=== PATIENT | female | born 1995 | race Caucasian/White ===

== ENCOUNTER 2017-10-19 10:52 | Emergency (ER) | payer MEDICAID ==
[~2017-10-19] VITALS: Ht 160 cm; Wt 72.6 kg
[~2017-10-19 10:52] MED LIST: IBUP-974 PO; PREN-385 PO
--- NOTE | 2017-10-19 10:57 | NUR ---
PT AMBULATES TO BED 4
--- NOTE | 2017-10-19 10:58 | NUR ---
22/F c/o noted vaginal bright red blood upon wiping today WITH mild suprapubic cramping 8 wks --LMP 08/22/2017 A2. denies injury/trauma. DENIES N/V/D; SKIN IS PINK/WARM/DRY; AAOX4 WITH EVEN AND STEADY GAIT; LUNGS CLEAR BL. PATIENT STATES PAIN OF 5/10 AT THIS TIME. PATIENT POSITIONED FOR COMFORT; HOB ELEVATED; BEDRAILS UP X2; BED DOWN. ER MD MADE AWARE OF PT STATUS.
[2017-10-19 11:00] VITALS: BP 113/68
--- NOTE | 2017-10-19 11:06 | NUR ---
provided urine sample
--- NOTE | 2017-10-19 11:31 | NUR ---
lab at bedside
[2017-10-19 11:43] LABS: BASOPHILS % (AUTO) 0.6 % (0.0-2.0); EOSINOPHILS # (AUTO) 0.2 K/uL (0-0.4); EOSINOPHILS % (AUTO) 2.7 % (0.0-4.0); HEMATOCRIT 38.7 % (36-48); HEMOGLOBIN 13.3 g/dL (12.0-16.0); LYMPHOCYTES # (AUTO) 2.1 K/uL (2.5-16.5); LYMPHOCYTES % (AUTO) 26.9 % (20.5-51.1); MEAN CORPUSCULAR HEMOGLOBIN 30 pg (27-31); MEAN CORPUSCULAR HGB CONC 34 g/dL (33-37); MONOCYTES # (AUTO) 0.4 K/uL (0.8-1.0); MONOCYTES % (AUTO) 5.7 % (1.7-9.3); NEUTROPHILS # (AUTO) 4.9 K/uL (1.8-7.7); NEUTROPHILS % (AUTO) 64.1 % (42.2-75.2); PLATELET COUNT (AUTO) 318 K/uL (140-450); RED BLOOD CELL COUNT(AUTO) 4.45 MIL/uL (4.20-5.40); RED CELL DISTRIBUTION WIDTH 13.5 % (11.6-13.7); WHITE BLOOD COUNT (AUTO) 7.7 K/uL (4.8-10.8)
--- NOTE | 2017-10-19 14:17 | NUR ---
Patient appears to be resting comfortably in bed. Vital Signs within normal limits. Respirations even and unlabored.WILL CONTINUE TO MONITOR.
[2017-10-19 14:40] VITALS: BP 115/60
--- NOTE | 2017-10-19 14:40 | NUR ---
Patient discharged with v/s stable. Written and verbal after care instructions given and explained. Patient alert, oriented and verbalized understanding of instructions. Ambulatory with steady gait. All questions addressed prior to discharge. ID band removed. Patient advised to follow up with PMD. Rx of [employer] MULTI given. Patient educated on indication of medication including possible reaction and side effects. Opportunity to ask questions provided and answered.
== END 2017-10-19 14:40 | disposition home or self-care (01) ==
LOC: MED 10:52
DX: O20.0 Threatened abortion (principal); Z3A.08 8 weeks gestation of pregnancy; Z79.899 Other long term (current) drug therapy
CPT/HCPCS: 36415; 76801; 81002; 81025; 84702; 85025; 86900; 86901; 99285; Q0092

== ENCOUNTER 2017-12-29 11:48 | Emergency (ER) | payer MEDICAID ==
[~2017-12-29] VITALS: Ht 157.5 cm; Wt 71.2 kg
[2017-12-29 12:05] VITALS: BP 116/73
[2017-12-29 12:40] LABS: BASOPHILS # (AUTO) 0.1 K/uL (0.00-0.22); BASOPHILS % (AUTO) 0.8 % (0.0-2.0); EOSINOPHILS # (AUTO) 0.4 K/uL (0-0.4); EOSINOPHILS % (AUTO) 4.7 % (0.0-4.0); HEMATOCRIT 37.6 % (36-48); LYMPHOCYTES # (AUTO) 2.1 K/uL (2.5-16.5); LYMPHOCYTES % (AUTO) 24.7 % (20.5-51.1); MEAN CORPUSCULAR HEMOGLOBIN 31 pg (27-31); MEAN CORPUSCULAR HGB CONC 35 g/dL (33-37); MEAN CORPUSCULAR VOLUME 89.2 fL (80-94); MONOCYTES # (AUTO) 0.6 K/uL (0.8-1.0); MONOCYTES % (AUTO) 6.9 % (1.7-9.3); NEUTROPHILS # (AUTO) 5.3 K/uL (1.8-7.7); NEUTROPHILS % (AUTO) 62.9 % (42.2-75.2); PLATELET COUNT (AUTO) 320 K/uL (140-450); RED BLOOD CELL COUNT(AUTO) 4.21 MIL/uL (4.20-5.40); RED CELL DISTRIBUTION WIDTH 13.3 % (11.6-13.7); WHITE BLOOD COUNT (AUTO) 8.3 K/uL (4.8-10.8)
[2017-12-29 13:15] LABS: ANION GAP 9.1 (8-16); CARBON DIOXIDE 24.2 mmol/L (21-32); POTASSIUM 3.3 mmol/L (3.5-5.1)
[2017-12-29 13:16] LABS: CREATININE 0.5 mg/dL (0.6-1.3)
[2017-12-29 13:29] LABS: APPEARANCE,URINE HAZY (CLEAR); BILIRUBIN,URINE NEGATIVE (NEGATIVE); BLOOD, URINE 0 (NEGATIVE); COLOR,URINE YELLOW (YELLOW); LEUKOCYTE ESTERASE ,URINE NEGATIVE (NEGATIVE); NITRITE, URINE NEGATIVE (NEGATIVE); PH,URINE 6.5 (5.0-9.0); UGLUCOSE 0 (NEGATIVE)
[2017-12-29 13:30] LABS: RBC,URINE NONE SEEN /HPF (0-5); WBC,URINE 0-5 (RARE) /HPF (0-5)
[2017-12-29 13:51] VITALS: BP 120/75
== END 2017-12-29 13:52 | disposition home or self-care (01) ==
LOC: MED 11:48
DX: O26.892 Other specified pregnancy related conditions, second trimester (principal); R10.30 Lower abdominal pain, unspecified; Z3A.18 18 weeks gestation of pregnancy; Z79.899 Other long term (current) drug therapy
CPT/HCPCS: 36415; 76805; 80048; 81001; 81025; 84702; 85025; 86900; 86901; 99285; Q0092

== ENCOUNTER 2018-03-22 12:37 | Observation (INO) | payer MEDICAID ==
[~2018-03-22] VITALS: Ht 160 cm; Wt 74.4 kg
[2018-03-22 13:12] VITALS: BP 103/56
[2018-03-22 14:58] LABS: BASOPHILS % (AUTO) 0.6 % (0.0-2.0); EOSINOPHILS # (AUTO) 0.1 K/uL (0-0.4); EOSINOPHILS % (AUTO) 1.4 % (0.0-4.0); HEMATOCRIT 36.7 % (36-48); HEMOGLOBIN 12.2 g/dL (12.0-16.0); LYMPHOCYTES # (AUTO) 1.8 K/uL (2.5-16.5); LYMPHOCYTES % (AUTO) 24.1 % (20.5-51.1); MEAN CORPUSCULAR HEMOGLOBIN 29 pg (27-31); MEAN CORPUSCULAR HGB CONC 33 g/dL (33-37); MONOCYTES # (AUTO) 0.5 K/uL (0.8-1.0); MONOCYTES % (AUTO) 7.2 % (1.7-9.3); NEUTROPHILS % (AUTO) 66.7 % (42.2-75.2); PLATELET COUNT (AUTO) 330 K/uL (140-450); RED BLOOD CELL COUNT(AUTO) 4.22 MIL/uL (4.20-5.40); RED CELL DISTRIBUTION WIDTH 13.8 % (11.6-13.7); WHITE BLOOD COUNT (AUTO) 7.6 K/uL (4.8-10.8)
[2018-03-22 15:20] LABS: APPEARANCE,URINE CLEAR (CLEAR); BILIRUBIN,URINE NEGATIVE (NEGATIVE); BLOOD, URINE NEGATIVE (NEGATIVE); COLOR,URINE YELLOW (YELLOW); LEUKOCYTE ESTERASE ,URINE NEGATIVE (NEGATIVE); NITRITE, URINE NEGATIVE (NEGATIVE); PH,URINE 8.5 (5.0-9.0); UGLUCOSE NEGATIVE (NEGATIVE)
== END 2018-03-22 19:35 | disposition home or self-care (01) ==
LOC: MLD 12:37
PROVIDERS: ADMIT Obstetrics & Gynecology; ATTEND Obstetrics & Gynecology
DX: Z3A.30 30 weeks gestation of pregnancy (principal); O26.893 Other specified pregnancy related conditions, third trimester; R10.30 Lower abdominal pain, unspecified
CPT/HCPCS: 36415; 76815; 81003; 85025; C1758; G0378; Q0092

== ENCOUNTER 2018-05-13 19:30 | Observation (INO) | payer MEDICAID ==
[~2018-05-13] VITALS: Ht 160 cm; Wt 77.1 kg
[2018-05-13] MEDS ORDERED: NALBUPHINE 10 MG/ML AMP IVP SCH (20:50)
[2018-05-13 20:58] VITALS: BP 106/56
[2018-05-13] MEDS ORDERED: TERBUTALINE 1 MG/ML VIAL SUBQ ONE (21:13)
[2018-05-13] MEDS: TERBUTALINE 1 MG/ML VIAL SUBQ SCH ×2 (21:33→21:49)
[2018-05-13] MEDS: LACTATED RINGERS 1,000 ML IV SCH (21:33)
[2018-05-14] MEDS ORDERED: NALBUPHINE 10 MG/ML AMP ONE (04:01)
[2018-05-14] MEDS: LACTATED RINGERS 1,000 ML IV SCH (06:38)
== END 2018-05-14 13:50 | disposition home or self-care (01) ==
LOC: MLD 19:30
PROVIDERS: ADMIT Obstetrics & Gynecology; ATTEND Obstetrics & Gynecology
DX: O26.893 Other specified pregnancy related conditions, third trimester (principal); R10.9 Unspecified abdominal pain; Z3A.38 38 weeks gestation of pregnancy
CPT/HCPCS: 76815; 96372; 96374; G0378; J2300; J3105; J7120; Q0092

== ENCOUNTER 2018-05-16 11:47 | Inpatient (IN) | payer MEDICAID ==
[~2018-05-16] VITALS: Ht 160 cm; Wt 77.6 kg
[2018-05-16 12:55] VITALS: BP 119/77
[2018-05-16] MEDS ORDERED: TERBUTALINE 1 MG/ML VIAL SUBQ SCH (13:55)
[2018-05-16] MEDS ORDERED: TERBUTALINE 1 MG/ML VIAL SUBQ ONE (14:32)
[2018-05-16] MEDS ORDERED: LACTATED RINGERS 1,000 ML IV SCH (23:19)
[2018-05-16] MEDS ORDERED: NALBUPHINE 10 MG/ML AMP IVP ONE (23:20)
[2018-05-16] MEDS ORDERED: AMPICILLIN 2,000 MG in NACL 0.9% MINI-BAG PLUS 100 ML IV SCH (23:20)
[2018-05-16] MEDS ORDERED: LACTATED RINGERS 500 ML IV ONE (23:20)
[2018-05-16] MEDS ORDERED: OXYTOCIN 10 UNITS/ML VIAL IM SCH (23:20)
[2018-05-16] MEDS ORDERED: PROMETHAZINE 25 MG/ML VIAL IVP PRN (23:20)
[2018-05-16 23:45] LABS: BASOPHILS # (AUTO) 0.1 K/uL (0.00-0.22); BASOPHILS % (AUTO) 0.8 % (0.0-2.0); EOSINOPHILS % (AUTO) 0.5 % (0.0-4.0); HEMATOCRIT 36.4 % (36-48); HEMOGLOBIN 12.1 g/dL (12.0-16.0); LYMPHOCYTES # (AUTO) 2.4 K/uL (2.5-16.5); MEAN CORPUSCULAR HEMOGLOBIN 28 pg (27-31); MEAN CORPUSCULAR HGB CONC 33 g/dL (33-37); MEAN CORPUSCULAR VOLUME 85.2 fL (80-94); MONOCYTES # (AUTO) 0.5 K/uL (0.8-1.0); MONOCYTES % (AUTO) 6.6 % (1.7-9.3); NEUTROPHILS # (AUTO) 4.8 K/uL (1.8-7.7); NEUTROPHILS % (AUTO) 61.1 % (42.2-75.2); PLATELET COUNT (AUTO) 260 K/uL (140-450); RED BLOOD CELL COUNT(AUTO) 4.28 MIL/uL (4.20-5.40); RED CELL DISTRIBUTION WIDTH 15.4 % (11.6-13.7); WHITE BLOOD COUNT (AUTO) 7.9 K/uL (4.8-10.8)
[2018-05-17] MEDS ORDERED: BUPIVACAINE 0.125%/NS PREMIX 250 ML ONE (00:04)
[2018-05-17] MEDS ORDERED: BUPIVACAINE 0.125%/NS PREMIX 250 ML EPI SCH (00:15)
[2018-05-17 00:35] LABS: APPEARANCE,URINE CLEAR (CLEAR); BILIRUBIN,URINE NEGATIVE (NEGATIVE); BLOOD, URINE 1+ (NEGATIVE); COLOR,URINE YELLOW (YELLOW); LEUKOCYTE ESTERASE ,URINE NEGATIVE (NEGATIVE); NITRITE, URINE NEGATIVE (NEGATIVE); PH,URINE 6.5 (5.0-9.0); UGLUCOSE NEGATIVE (NEGATIVE)
[2018-05-17] MEDS ORDERED: AMPICILLIN 2,000 MG VIAL ONE (00:54)
[2018-05-17 02:27] LABS: RBC,URINE 0-5 /HPF (0-5); WBC,URINE 0-5 /HPF (0-5)
[2018-05-17] MEDS ORDERED: OXYTOCIN 20 UNITS in LACTATED RINGERS 1,000 ML IV SCH ×2 (03:30→04:47)
[2018-05-17] MEDS ORDERED: OXYTOCIN 10 UNITS/ML VIAL ONE (03:31)
[2018-05-17] MEDS ORDERED: OXYTOCIN 20 UNITS/LR PREMIX 1,000 ML IV ONE (03:32)
[2018-05-17] MEDS ORDERED: AMPICILLIN 1,000 MG in NACL 0.9% MINI-BAG PLUS 50 ML IV SCH (04:00)
[2018-05-17] MEDS ORDERED: ACETAMINOPHEN 325 MG TAB PO PRN (04:50)
[2018-05-17] MEDS ORDERED: IBUPROFEN 600 MG TAB PO PRN (04:50)
[2018-05-17] MEDS ORDERED: BISACODYL 5 MG TABEC PO PRN (04:50)
[2018-05-17] MEDS ORDERED: MEASLES, MUMPS, AND RUBELLA 1 VIAL SQVAC PRN (04:50)
--- NOTE | 2018-05-17 08:38 | NUR ---
PATIENT HAS BEEN SCREENED AND CATEGORIZED LOW NUTRITION RISK. PATIENT WILL BE SEEN WITHIN 7 DAYS OF ADMISSION. 05/23/[address]
[2018-05-18 09:07] LABS: HEPATITIS B SURFACE ANTIGEN Negative (Negative)
[2018-05-18 09:54] LABS: BASOPHILS % (AUTO) 0.5 % (0.0-2.0); EOSINOPHILS # (AUTO) 0.1 K/uL (0-0.4); EOSINOPHILS % (AUTO) 1.6 % (0.0-4.0); HEMATOCRIT 37.2 % (36-48); HEMOGLOBIN 12.2 g/dL (12.0-16.0); LYMPHOCYTES # (AUTO) 2.3 K/uL (2.5-16.5); LYMPHOCYTES % (AUTO) 25.8 % (20.5-51.1); MEAN CORPUSCULAR HEMOGLOBIN 29 pg (27-31); MEAN CORPUSCULAR HGB CONC 33 g/dL (33-37); MEAN CORPUSCULAR VOLUME 87.9 fL (80-94); MONOCYTES # (AUTO) 0.3 K/uL (0.8-1.0); MONOCYTES % (AUTO) 3.8 % (1.7-9.3); NEUTROPHILS # (AUTO) 6.2 K/uL (1.8-7.7); NEUTROPHILS % (AUTO) 68.3 % (42.2-75.2); PLATELET COUNT (AUTO) 249 K/uL (140-450); RED BLOOD CELL COUNT(AUTO) 4.23 MIL/uL (4.20-5.40); RED CELL DISTRIBUTION WIDTH 15.5 % (11.6-13.7); WHITE BLOOD COUNT (AUTO) 9.1 K/uL (4.8-10.8)
== END 2018-05-19 15:10 | disposition home or self-care (01) | DRG 560 ==
LOC: MLD 11:47 → OBSVTOIN 23:25 → MFCC 05-17 06:12
PROVIDERS: ADMIT Obstetrics & Gynecology; ATTEND Obstetrics & Gynecology
PROC: 10E0XZZ Delivery of Products of Conception, External Approach (ICD-10-PCS; principal; 2018-05-17)
PROC: 00HU33Z Insertion of Infusion Device into Spinal Canal, Percutaneous Approach (ICD-10-PCS; 2018-05-17)
PROC: 3E0R3BZ Introduction of Anesthetic Agent into Spinal Canal, Percutaneous Approach (ICD-10-PCS; 2018-05-17)
DX: O80 Encounter for full-term uncomplicated delivery (principal); Z37.0 Single live birth; Z3A.38 38 weeks gestation of pregnancy
CPT/HCPCS: 36415; 51702; 59409; 81000; 81001; 85025; 86592; 86762; 86886; 86900; 86901; 87340; G0378; J0290; J2590; J3105; J3490; J7120

== ENCOUNTER 2019-12-19 20:26 | Emergency (ER) | payer MEDICAID ==
[~2019-12-19] VITALS: Ht 160 cm; Wt 68.0 kg
[2019-12-19 20:39] VITALS: BP 114/71
--- NOTE | 2019-12-19 20:41 | NUR ---
To ED bed 08
--- NOTE | 2019-12-19 20:54 | NUR ---
24 Y/O FEMALE PRESENTED TO ED C/O SUPRAPUBIC PAIN THAT RADIATED TO LOWER BACK X 2 DAYS. PT + DYSURIA , BURNING SENSATION WHILE URINATING . PT + VAGINAL DISCHARGE, STATES IT DOES HAVE FOUL ODOR. PT DENIES TAKING ANY MEDICATION FOR PAIN. ABD ROUND, SOFT AND NONTENDER. ACTIVE BOWEL SOUNDS IN ALL QUADS. DENIES HEMATURIA. PT RESTING IN BED, LOCKED AND IN LOWEST POSITION, HOB ELEVATED , SIDE RAIL X1. VSS. PMH: DENIES NKA
--- NOTE | 2019-12-19 21:14 | NUR ---
PELVIC EXAM SETUP , PT PLACED IN GOWN . ERMD MADE AWARE.
--- NOTE | 2019-12-19 21:20 | NUR ---
Female [employer]-VAHE ALANIZ accompanied female patient for Pelvic Exam. PERFORMED BY MARY KATE CHAMBERLAIN. WETMOUNT COLLECTED AT THIS TIME. PT TOLERATED WELL.
--- NOTE | 2019-12-19 21:26 | NUR ---
WET MOUNT HANDED TO LAB.
[2019-12-19] MEDS ORDERED: KETOROLAC 30 MG/ML VIAL IM ONE (21:55)
[2019-12-19 22:18] LABS: APPEARANCE,URINE CLEAR (CLEAR); BILIRUBIN,URINE NEGATIVE (NEGATIVE); BLOOD, URINE NEGATIVE (NEGATIVE); COLOR,URINE YELLOW (YELLOW); LEUKOCYTE ESTERASE ,URINE TRACE (NEGATIVE); NITRITE, URINE NEGATIVE (NEGATIVE); PH,URINE 5.5 (5.0-9.0); UGLUCOSE NEGATIVE (NEGATIVE)
[2019-12-19 22:30] LABS: RBC,URINE 0-5 /HPF (0-5)
[2019-12-19 22:53] VITALS: BP 116/76
--- NOTE | 2019-12-19 22:53 | NUR ---
Patient discharged with v/s stable. Written and verbal after care instructions given and explained. Patient alert, oriented and verbalized understanding of instructions. Ambulatory with steady gait. All questions addressed prior to discharge. ID band removed. Patient advised to follow up with PMD. Rx of KEFLEX & NAPROSYN given. Patient educated on indication of medication including possible reaction and side effects. Opportunity to ask questions provided and answered.
[2019-12-23 06:07] LABS: CHLAMYDIA TRACHOMATIS AMP DNA Negative (Negative)
== END 2019-12-19 22:53 | disposition home or self-care (01) ==
LOC: MED 20:26
DX: N39.0 Urinary tract infection, site not specified (principal); N76.0 Acute vaginitis
CPT/HCPCS: 36415; 81001; 81025; 87086; 87210; 87491; 96372; 99284; J1885; 99283

== ENCOUNTER 2020-03-16 19:35 | Emergency (ER) | payer MEDICAID ==
[~2020-03-16] VITALS: Ht 160 cm; Wt 70.8 kg
[2020-03-16 20:13] VITALS: BP 146/84
--- NOTE | 2020-03-16 21:08 | NUR ---
24 YO F BIB SELF WITH C/C OF VAGINAL BLEEDING. PT STATED SHE TOOK A PREG TEST ON Feb WHICH CAME OUT POS. PT STATED ON Feb SHE BEGAN HAVING HEAVY VAGINAL BLEEDING, SINCE THEN HAS BEEN SPOTTING. PT DENIES PAIN. +NAUSEA AND VOMITTING. -COUGH, FEVER, AND CHILLS. HX: DENIES RX: DENIES NKA LMP: Dec
--- NOTE | 2020-03-16 21:23 | NUR ---
PATIENT TAKEN TO US VIA W/C.
[2020-03-16 21:31] LABS: BASOPHILS # (AUTO) 0.1 K/uL (0.00-0.22); BASOPHILS % (AUTO) 0.7 % (0.0-2.0); EOSINOPHILS # (AUTO) 0.3 K/uL (0-0.4); EOSINOPHILS % (AUTO) 3.3 % (0.0-4.0); HEMATOCRIT 39.3 % (36-48); HEMOGLOBIN 13.6 g/dL (12.0-16.0); LYMPHOCYTES # (AUTO) 2.2 K/uL (2.5-16.5); LYMPHOCYTES % (AUTO) 27.3 % (20.5-51.1); MEAN CORPUSCULAR HEMOGLOBIN 31 pg (27-31); MEAN CORPUSCULAR HGB CONC 35 g/dL (33-37); MEAN CORPUSCULAR VOLUME 89.9 fL (80-94); MONOCYTES # (AUTO) 0.7 K/uL (0.8-1.0); MONOCYTES % (AUTO) 8.2 % (1.7-9.3); NEUTROPHILS # (AUTO) 4.9 K/uL (1.8-7.7); NEUTROPHILS % (AUTO) 60.5 % (42.2-75.2); PLATELET COUNT (AUTO) 305 K/uL (140-450); RED BLOOD CELL COUNT(AUTO) 4.38 MIL/uL (4.20-5.40); RED CELL DISTRIBUTION WIDTH 13.4 % (11.6-13.7); WHITE BLOOD COUNT (AUTO) 8.1 K/uL (4.8-10.8)
--- NOTE | 2020-03-16 21:40 | NUR ---
PT TAKEN BACK VIA W/C TO LOBBY.
--- NOTE | 2020-03-16 22:37 | NUR ---
ERMD AT CHAIR SIDE
[2020-03-16 22:54] VITALS: BP 146/84
--- NOTE | 2020-03-16 22:54 | NUR ---
NO NURSING INTERVENTIONS NEEDED.
== END 2020-03-16 22:54 | disposition home or self-care (01) ==
LOC: MED 19:35
DX: O20.8 Other hemorrhage in early pregnancy (principal); O21.0 Mild hyperemesis gravidarum
CPT/HCPCS: 36415; 76801; 81002; 81025; 84702; 85025; 86900; 86901; 99284

== ENCOUNTER 2020-08-16 02:04 | Observation (INO) | payer MEDICAID ==
[~2020-08-16] VITALS: Ht 154.9 cm; Wt 75.3 kg
[2020-08-16] MEDS ORDERED: NACL 0.9% 1,000 ML IV SCH (03:10)
[2020-08-16] MEDS ORDERED: ALUMINUM HYD/MAG/SIMETHICONE 30 ML UDC PO PRN ×2 (03:10→03:35)
[2020-08-16] MEDS ORDERED: NACL 0.9% 500 ML IV ONE (03:10)
[2020-08-16 03:24] LABS: APPEARANCE,URINE CLOUDY (CLEAR); BILIRUBIN,URINE NEGATIVE (NEGATIVE); BLOOD, URINE NEGATIVE (NEGATIVE); COLOR,URINE YELLOW (YELLOW); LEUKOCYTE ESTERASE ,URINE 1+ (NEGATIVE); NITRITE, URINE NEGATIVE (NEGATIVE); UGLUCOSE NEGATIVE (NEGATIVE)
[2020-08-16] MEDS ORDERED: ALUMINUM HYD/MAG/SIMETHICONE 30 ML UDC ONE (03:35)
[2020-08-16 03:46] VITALS: BP 100/51
[2020-08-16] MEDS ORDERED: cefTRIAXone 1,000 MG VIAL ONE (03:56)
[2020-08-16] MEDS ORDERED: FAMOTIDINE 20 MG TAB PO SCH (04:00)
[2020-08-16 04:05] LABS: RBC,URINE 0-5 /HPF (0-5)
--- NOTE | 2020-08-16 08:42 | NUR ---
PATIENT HAS BEEN SCREENED AND CATEGORIZED LOW NUTRITION RISK. PATIENT WILL BE SEEN WITHIN 7 DAYS OF ADMISSION. 08/22/[address]
[2020-08-16] MEDS ORDERED: PANTOPRAZOLE 40 MG TABEC PO SCH (09:00)
== END 2020-08-16 10:37 | disposition home or self-care (01) ==
LOC: MLD 02:04
PROVIDERS: ADMIT Obstetrics & Gynecology; ATTEND Obstetrics & Gynecology
DX: O26.893 Other specified pregnancy related conditions, third trimester (principal); R10.13 Epigastric pain; Z3A.30 30 weeks gestation of pregnancy
CPT/HCPCS: 81001; 87086; 96361; 96365; G0378; J0696; J7060

== ENCOUNTER 2020-10-05 21:52 | Inpatient (IN) | payer MEDICAID, SELFPAY ==
[~2020-10-05] VITALS: Ht 154.9 cm; Wt 72.6 kg
[~2020-10-05 21:52] MED LIST changes: -IBUP-974 PO; +MISOPROSTOL 200 MCG TAB VG SCH; -PREN-385 PO
[2020-10-05] MEDS ORDERED: CARBOPROST 250 MCG/ML AMP IM PRN (22:30)
[2020-10-05] MEDS ORDERED: METHYLERGONOVINE 0.2 MG/ML AMP IM PRN (22:30)
[2020-10-05] MEDS ORDERED: NALBUPHINE 10 MG/ML AMP IVP PRN (22:30)
[2020-10-05] MEDS ORDERED: PROMETHAZINE 25 MG/ML VIAL IVP PRN (22:30)
[2020-10-05] MEDS: LACTATED RINGERS 1,000 ML IV SCH (23:15)
[2020-10-05] MEDS ORDERED: MISOPROSTOL 25 MCG TAB ONE (23:15)
[2020-10-05 23:18] LABS: APPEARANCE,URINE CLEAR (CLEAR); BILIRUBIN,URINE NEGATIVE (NEGATIVE); BLOOD, URINE NEGATIVE (NEGATIVE); COLOR,URINE YELLOW (YELLOW); LEUKOCYTE ESTERASE ,URINE TRACE (NEGATIVE); NITRITE, URINE NEGATIVE (NEGATIVE); UGLUCOSE NEGATIVE (NEGATIVE)
[2020-10-05 23:19] LABS: BASOPHILS # (AUTO) 0.1 K/uL (0.00-0.22); EOSINOPHILS # (AUTO) 0.1 K/uL (0-0.4); EOSINOPHILS % (AUTO) 1.2 % (0.0-4.0); HEMOGLOBIN 11.5 g/dL (12.0-16.0); LYMPHOCYTES # (AUTO) 1.9 K/uL (2.5-16.5); LYMPHOCYTES % (AUTO) 23.3 % (20.5-51.1); MEAN CORPUSCULAR HEMOGLOBIN 29 pg (27-31); MEAN CORPUSCULAR HGB CONC 34 g/dL (33-37); MEAN CORPUSCULAR VOLUME 84.6 fL (80-94); MONOCYTES # (AUTO) 0.6 K/uL (0.8-1.0); MONOCYTES % (AUTO) 7.4 % (1.7-9.3); NEUTROPHILS # (AUTO) 5.4 K/uL (1.8-7.7); NEUTROPHILS % (AUTO) 67.1 % (42.2-75.2); PLATELET COUNT (AUTO) 335 K/uL (140-450); RED BLOOD CELL COUNT(AUTO) 4.02 MIL/uL (4.20-5.40); RED CELL DISTRIBUTION WIDTH 15.4 % (11.6-13.7); WHITE BLOOD COUNT (AUTO) 8.1 K/uL (4.8-10.8)
[2020-10-05 23:39] LABS: ANION GAP 9.4 (8-16); CARBON DIOXIDE 25.5 mmol/L (21-32); CREATININE 0.7 mg/dL (0.6-1.3); POTASSIUM 3.9 mmol/L (3.5-5.1); TOTAL BILIRUBIN 0.2 mg/dL (0.0-1.0)
[2020-10-06 00:28] LABS: RBC,URINE 0-5 /HPF (0-5)
[2020-10-06] MEDS ORDERED: AMPICILLIN 2,000 MG VIAL ONE (00:43)
[2020-10-06] MEDS ORDERED: AMPICILLIN 2,000 MG in NACL 0.9% 100 ML IV SCH (01:14)
[2020-10-06 01:57] VITALS: BP 123/61
[2020-10-06] MEDS: LACTATED RINGERS 1,000 ML IV SCH ×3 (02:56→09:50)
[2020-10-06] MEDS ORDERED: AMPICILLIN 1,000 MG VIAL ONE (04:48)
--- NOTE | 2020-10-06 07:17 | NUR ---
PATIENT HAS BEEN SCREENED AND CATEGORIZED LOW NUTRITION RISK. PATIENT WILL BE SEEN WITHIN 7 DAYS OF ADMISSION. 10/12/[address]
[2020-10-06] MEDS ORDERED: LACTATED RINGERS 500 ML IV ONE (07:50)
[2020-10-06] MEDS ORDERED: AMPICILLIN 1,000 MG in NACL 0.9% MINI-BAG PLUS 50 ML IV SCH ×5 (08:15→12:00)
[2020-10-06] MEDS ORDERED: LIDOCAINE 2% 100 MG/5 ML SYR IVP ONE (08:28)
[2020-10-06] MEDS ORDERED: [UNRECOGNIZED DRUG - OTHER] ONE (08:28)
[2020-10-06] MEDS ORDERED: OXYTOCIN 20 UNITS in LACTATED RINGERS 1,000 ML IV SCH (08:30)
[2020-10-06] MEDS ORDERED: ROPIVACAINE 0.2%/NS PREMIX 200 ML EPI ONE (08:33)
[2020-10-06] MEDS ORDERED: fentaNYL citrate 0.05 MG/ML VIAL ONE (08:33)
[2020-10-06] MEDS ORDERED: IBUPROFEN 600 MG TAB PO PRN (11:20)
[2020-10-06] MEDS ORDERED: IBUPROFEN 800 MG TAB PO PRN (11:20)
[2020-10-06] MEDS ORDERED: METHYLERGONOVINE 0.2 MG/ML AMP IM PRN (11:20)
[2020-10-06] MEDS ORDERED: SIMETHICONE 80 MG TAB.CHEW PO PRN (11:20)
[2020-10-06] MEDS ORDERED: bisacodyL 5 MG TABEC PO PRN (11:20)
[2020-10-06] MEDS ORDERED: MEASLES, MUMPS, AND RUBELLA 1 VIAL SQVAC ONE (11:20)
[2020-10-06] MEDS ORDERED: BENZOCAINE/MENTHOL 20%-0.5% 60 GM CAN TP PRN (11:20)
[2020-10-06] MEDS ORDERED: METHYLERGONOVINE 0.2 MG TAB PO PRN (11:20)
[2020-10-06] MEDS ORDERED: OXYTOCIN 10 UNITS/ML VIAL IM PRN (11:20)
[2020-10-06] MEDS ORDERED: DOCUSATE SODIUM 100 MG GELCAP PO PRN (11:20)
[2020-10-07 08:03] LABS: HEMOGLOBIN 10.9 g/dL (12.0-16.0)
== END 2020-10-07 21:05 | disposition home or self-care (01) | DRG 560 ==
LOC: MLD 21:52 → MFCC 10-06 14:15
PROVIDERS: ADMIT Obstetrics & Gynecology; ATTEND Obstetrics & Gynecology
PROC: 10E0XZZ Delivery of Products of Conception, External Approach (ICD-10-PCS; principal; 2020-10-06)
PROC: 3E0134Z Introduction of Serum, Toxoid and Vaccine into Subcutaneous Tissue, Percutaneous Approach (ICD-10-PCS; 2020-10-06)
PROC: 3E0234Z Introduction of Serum, Toxoid and Vaccine into Muscle, Percutaneous Approach (ICD-10-PCS; 2020-10-06)
DX: O69.81X0 Labor and delivery complicated by cord around neck, without compression, not applicable or unspecified (principal); Z20.822 Contact with and (suspected) exposure to COVID-19; Z37.0 Single live birth; Z3A.39 39 weeks gestation of pregnancy; Z23 Encounter for immunization
CPT/HCPCS: 36415; 51702; 59200; 59409; 76815; 80053; 81001; 85018; 85025; 86592; 86886; 86900; 86901; 87086; J0290; J2001; J2300; J2550; J2795; J3010

== ENCOUNTER 2020-12-23 19:42 | Emergency (ER) | payer MEDICAID, SELFPAY ==
[~2020-12-23] VITALS: Ht 157.5 cm; Wt 73.9 kg
[2020-12-23 19:47] VITALS: BP 130/81
--- NOTE | 2020-12-23 19:52 | NUR ---
PT SENT TO LOBBY
[2020-12-23] MEDS ORDERED: DICYCLOMINE HCL LIQUID 10 MG/5 ML UDC ONE (20:28)
[2020-12-23] MEDS ORDERED: ALUMINUM HYD/MAG/SIMETHICONE 30 ML UDC ONE (20:28)
[2020-12-23] MEDS: DICYCLOMINE HCL LIQUID 20 MG, ALUMINUM HYD/MAG/SIMETHICONE 30 ML, LIDOCAINE VISCOUS 2% ... PO ONE ×3 (20:32)
[2020-12-23] MEDS: FAMOTIDINE 20 MG TAB PO ONE (20:33)
[2020-12-23] MEDS: ONDANSETRON 4 MG ODT PO ONE (20:38)
[2020-12-23] MEDS: ACETAMINOPHEN EXTRA STRENGTH 500 MG TAB PO ONE (20:39)
[2020-12-23 20:40] LABS: BASOPHILS # (AUTO) 0.1 K/uL (0.00-0.22); BASOPHILS % (AUTO) 0.8 % (0.0-2.0); EOSINOPHILS # (AUTO) 0.5 K/uL (0-0.4); EOSINOPHILS % (AUTO) 3.6 % (0.0-4.0); HEMATOCRIT 41.7 % (36-48); HEMOGLOBIN 13.9 g/dL (12.0-16.0); LYMPHOCYTES # (AUTO) 0.8 K/uL (2.5-16.5); LYMPHOCYTES % (AUTO) 6.1 % (20.5-51.1); MEAN CORPUSCULAR HEMOGLOBIN 29 pg (27-31); MEAN CORPUSCULAR HGB CONC 33 g/dL (33-37); MEAN CORPUSCULAR VOLUME 86.6 fL (80-94); MONOCYTES # (AUTO) 0.3 K/uL (0.8-1.0); MONOCYTES % (AUTO) 2.7 % (1.7-9.3); NEUTROPHILS # (AUTO) 11.1 K/uL (1.8-7.7); NEUTROPHILS % (AUTO) 86.8 % (42.2-75.2); PLATELET COUNT (AUTO) 328 K/uL (140-450); RED BLOOD CELL COUNT(AUTO) 4.82 MIL/uL (4.20-5.40); RED CELL DISTRIBUTION WIDTH 15.5 % (11.6-13.7); WHITE BLOOD COUNT (AUTO) 12.8 K/uL (4.8-10.8)
--- NOTE | 2020-12-23 20:40 | NUR ---
25/F C/O EPIGASTRIC PAIN SINCE THIS MORNING, STATES PAIN IS NONRADIATING AND NONTENDER TO TOUCH. PATIENT STATES SHE FEELS A "BURNING SENSATION". PATIENT ALSO C/O NAUSEA. REPORTS TAKING PEPTO AT HOME WITH NO RELIEF. DENIES CP, SOB, FEVER, CHILLS.
[2020-12-23 21:04] LABS: ALBUMIN 4.4 g/dL (3.4-5.0); ANION GAP 15.9 (8-16); CARBON DIOXIDE 26.2 mmol/L (21-32); CREATININE 0.7 mg/dL (0.6-1.3); POTASSIUM 4.1 mmol/L (3.5-5.1); TOTAL BILIRUBIN 0.3 mg/dL (0.0-1.0)
[2020-12-23] MEDS ORDERED: FAMO-90 PO (21:17)
[2020-12-23] MEDS ORDERED: MAG355OR2 PO (21:17)
[2020-12-23] MEDS ORDERED: ONDA-24 PO (21:20)
[2020-12-23 21:42] VITALS: BP 130/81
--- NOTE | 2020-12-23 21:42 | NUR ---
Patient discharged with v/s stable. Written and verbal after care instructions given and explained ABOUT GASTRITIS AND FATTY LIVER DISEASE. Patient alert, oriented and verbalized understanding of instructions. Ambulatory with steady gait. All questions addressed prior to discharge. ID band removed. Patient advised to follow up with PMD. Rx of MAALOX, PEPCID AND ZOFRAN given. Patient educated on indication of medication including possible reaction and side effects. Opportunity to ask questions provided and answered.
== END 2020-12-23 21:42 | disposition home or self-care (01) ==
LOC: MED 19:42
DX: K29.70 Gastritis, unspecified, without bleeding (principal); R11.0 Nausea; Z79.899 Other long term (current) drug therapy
CPT/HCPCS: 36415; 80053; 81002; 81025; 83690; 85025; 99284; Q0162